=== PATIENT | female | born 1960 | race Caucasian/White ===

== ENCOUNTER 2017-07-13 19:04 | Emergency (ER) | payer OTHER ==
[~2017-07-13] VITALS: Ht 160 cm; Wt 60.0 kg
[~2017-07-13 19:04] MED LIST: CEPH500C PO; LORA-441 PO
[2017-07-13 19:15] VITALS: Ht 160 cm; Wt 60.0 kg
[2017-07-13 19:20] VITALS: TEMP 98.4
[2017-07-13] MEDS ORDERED: morphine 10 MG INJ IM ONE ×2 (19:30→22:30)
[2017-07-13] MEDS ORDERED: DIPHTH/TET/ACEL PERTUSS (ADULT) 0.5 ML VIAL IM* ONE (19:30)
[2017-07-13] MEDS ORDERED: LIDOCAINE 1% (MDV) 20 ML INJ SC ONE (20:00)
[2017-07-13] MEDS ORDERED: HYDROCODONE/APAP (10/325) TAB PO ONE (22:30)
[2017-07-13] MEDS ORDERED: ALPR1TAB7 PO (23:03)
[2017-07-13] MEDS ORDERED: MIRT30TA5 PO (23:03)
[2017-07-13] MEDS ORDERED: PRAZ1CAP3 PO (23:03)
[2017-07-13] MEDS ORDERED: ACET-141 PO (23:03)
[2017-07-13] MEDS ORDERED: SERT50TA6 PO (23:03)
[2017-07-13] MEDS ORDERED: NAPR220C2 PO (23:03)
[2017-07-13] MEDS ORDERED: HYDR-905 PO (23:44)
[2017-07-13] MEDS ORDERED: CEPH500C PO (23:44)
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
[2017-07-14 00:45] VITALS: BP 136/84; PULSE 72; RESP 20
== END 2017-07-14 01:00 | disposition home or self-care (01) ==
LOC: E/R 19:04
DX: S61.214A Laceration without foreign body of right ring finger without damage to nail, initial encounter (principal); F17.210 Nicotine dependence, cigarettes, uncomplicated; X99.1XXA Assault by knife, initial encounter; Z23 Encounter for immunization
CPT/HCPCS: 12004; 73110; 90471; 90715; 96372; 99284; J2270

== ENCOUNTER 2019-04-14 22:07 | Emergency (ER) | payer OTHER ==
[~2019-04-14] VITALS: Ht 160 cm; Wt 66.2 kg
[~2019-04-14 22:07] MED LIST changes: +ACET-141 PO; +ALPR1TAB7 PO; +HYDR-4012 PO; -LORA-441 PO; +MIRT30TA5 PO; +NAPR220C2 PO; +PRAZ1CAP3 PO; +SERT50TA6 PO
[2019-04-14 22:17] VITALS: Ht 160 cm; Wt 66.2 kg
[2019-04-15] MEDS ORDERED: IBUPROFEN 200 MG TAB PO ONE (02:00)
[2019-04-15] MEDS ORDERED: HYDR-843 PO (03:39)
[2019-04-15] MEDS ORDERED: ESCI10TA48 PO (03:39)
[2019-04-15] MEDS ORDERED: ALPR0.5T6 PO (03:39)
[2019-04-15] MEDS ORDERED: LURA40TA PO (03:39)
[2019-04-15] MEDS ORDERED: BUSP10TA2 PO (03:39)
--- NOTE | 2019-04-15 03:41 | ERD ---
ER Documentation Chief Complaint Chief Complaint c/o anxiety, states run out of med ROS All systems reviewed and are negative except as per history of present illness. Medications Home Meds Active Scripts Hydroxyzine Hcl* (Hydroxyzine Hcl*) 25 Mg Tablet, 25 MG PO QHS for anxiety, #30 TAB Prov:SOURAV GILL DO 04/15/19 Buspirone Hcl* (Buspirone Hcl*) 10 Mg Tab, 10 MG PO TID for anxiety, #30 TAB Prov:SOURAV GILL DO 04/15/19 Escitalopram Oxalate* (Escitalopram Oxalate*) 10 Mg Tablet, 10 MG PO DAILY for depressino, #30 TAB Prov:SOURAV GILL DO 04/15/19 Alprazolam* (Alprazolam*) 0.5 Mg Tablet, 0.5 MG PO BID PRN for ANXIETY, #10 TAB Prov:SOURAV GILL DO 04/15/19 Lurasidone Hcl (LATUDA) 40 Mg Tablet, 40 MG PO DAILY for bipolar, #30 TAB Prov:SOURAV GILL DO 04/15/19 Cephalexin* (Cephalexin*) 500 Mg Capsule, 500 MG PO Q8, #21 CAP Prov:COLTEN SEWELL DO 07/13/17 Hydrocodone/Acetaminophen ([place] 7.5-325 Tablet) 1 Each Tablet, 1 EACH PO Q6 for PAIN, #24 TAB Prov:DONATOCOLTEN DO 07/13/17 Reported Medications Acetaminophen* (Acetaminophen*) 500 MG Extra Strength Tablet, 500 MG PO Q4H PRN for PAIN AND OR ELEVATED TEMP, TAB 07/13/17 Naproxen* (Aleve*) 220 Mg Capsule, 220 MG PO BID for PAIN, #60 CAP 07/13/17 Mirtazapine* (Mirtazapine*) 30 Mg Tablet, 30 MG PO DAILY, TAB 07/13/17 Sertraline Hcl* (Sertraline Hcl*) 50 Mg Tablet, 75 MG PO DAILY, #30 TAB 07/13/17 Alprazolam* (Alprazolam*) 1 Mg Tablet, 1 MG PO Q8H PRN for ANXIETY, TAB 07/13/17 Prazosin Hcl* (Prazosin Hcl*) 1 Mg Capsule, 1 MG PO BID, CAP 07/13/17 Allergies Allergies: Coded Allergies: No Known Allergy (Unverified , 07/13/17) PMhx/Soc History of Surgery: Yes (HYSTER, D&C, TUBAL LIGATION) Anesthesia Reaction: No Hx Neurological Disorder: Yes (migraine) Hx Respiratory Disorders: No Hx Cardiac Disorders: No Hx Psychiatric Problems: Yes (Depression/anxiety) Hx Miscellaneous Medical Probl: Yes Hx Alcohol Use: No Hx Substance Use: Yes (POT) Hx Tobacco Use: Yes Smoking Status: Current every day smoker Physical Exam Vitals Vital Signs Date Temp Pulse Resp B/P (MAP) Pulse Ox O2 O2 Flow FiO2 Time Delivery Rate 04/14/19 97.2 89 18 168/89 99 22:17 (115) Physical Exam Const: No acute distress Head: Atraumatic Eyes: Normal Conjunctiva ENT: Normal External Ears, Nose and Mouth. Neck: Full range of motion. No meningismus. Resp: Clear to auscultation bilaterally Cardio: Regular rate and rhythm, no murmurs Abd: Soft, non tender, non distended. Normal bowel sounds Skin: No petechiae or rashes Back: No midline or flank tenderness Ext: No cyanosis, or edema Neur: Awake and alert Psych: Normal Mood and Affect Results 24 hrs Current Medications Medications Dose Sig/May Start Time Status Last (Trade) Ordered Route PRN Stop Time Admin Dose Reason Admin Ibuprofen 400 mg ONCE ONCE 04/15/19 DC 04/15/19 (Motrin) PO 02:00 02:04 04/15/19 02:01 Departure Diagnosis: Primary Impression: Headache Headache type: unspecified Headache chronicity pattern: unspecified pattern Intractability: not intractable Qualified Codes: R51 - Headache Additional Impression: Medication refill Condition: Fair Patient Instructions: Taking Medicine Safely, Self-Care for Headaches Referrals: [facility] YOU HAVE RECEIVED A MEDICAL SCREENING EXAM AND THE RESULTS INDICATE THAT YOU DO NOT HAVE A CONDITION THAT REQUIRES URGENT TREATMENT IN THE EMERGENCY DEPARTMENT. FURTHER EVALUATION AND TREATMENT OF YOUR CONDITION CAN WAIT UNTIL YOU ARE SEEN IN YOUR DOCTORS OFFICE WITHIN THE NEXT 1-2 DAYS. IT IS YOUR RESPONSIBILITY TO MAKE AN APPOINTMENT FOR FOLOW-UP CARE. IF YOU HAVE A PRIMARY DOCTOR --you should call your primary doctor and schedule an appointment IF YOU DO NOT HAVE A PRIMARY DOCTOR YOU CAN CALL OUR PHYSICIAN REFERRAL HOTLINE AT IF YOU CAN NOT AFFORD TO SEE A PHYSICIAN YOU CAN CHOSE FROM THE FOLLOWING [facility] [address] [facility]. [facility] [address] [facility] [address] [facility] [address] [facility]. [facility] [address] [facility]. [facility] [address] Additional Instructions: Call your primary care doctor TOMORROW for an appointment during the next 1-2 days.See the doctor sooner or return here if your condition worsens before your appointment time. Follow up with psychiatrist SOURAV GILL DO Apr 15, 2019 03:41
[2019-04-15 03:53] VITALS: BP 156/82; PULSE 75; RESP 18
== END 2019-04-15 03:54 | disposition home or self-care (01) ==
LOC: FTE 22:07
DX: R51 Headache (principal); F17.210 Nicotine dependence, cigarettes, uncomplicated
CPT/HCPCS: Z7502; Z7610; 99281